=== PATIENT | female | born 1950 | race Caucasian/White ===

== ENCOUNTER 2022-05-16 10:33 | Emergency (ER) | payer MEDICARE ==
[~2022-05-16] VITALS: Ht 157.5 cm; Wt 75.0 kg
[2022-05-16] MEDS ORDERED: APIX2.5T PO (10:45)
[2022-05-16 11:28] VITALS: BP 148/70
[2022-05-16 11:39] LABS: BASOPHILS % (AUTO) 0.9 % (0.0-2.0); HEMATOCRIT 38.6 % (36-46); HEMOGLOBIN 12.9 g/dL (12.0-16.0); LYMPHOCYTES # (AUTO) 2.3 K/uL (1.0-4.8); LYMPHOCYTES % (AUTO) 27.6 % (22.0-44.0); MEAN CORPUSCULAR HEMOGLOBIN 28.4 pg (26.0-34.0); MEAN CORPUSCULAR HGB CONC 33.3 G/dL (31.0-37.0); MEAN CORPUSCULAR VOLUME 85 fL (80-100); MONOCYTES # (AUTO) 0.5 K/uL (0.1-1.0); MONOCYTES % (AUTO) 6.4 % (2.0-9.0); NEUTROPHILS # (AUTO) 5.3 K/uL (1.8-7.7); NEUTROPHILS % (AUTO) 63.1 % (40.0-70.0); PLATELET COUNT (AUTO) 355 K/uL (150-450); RED BLOOD CELL COUNT(AUTO) 4.53 MIL/uL (4.00-5.20); RED CELL DISTRIBUTION WIDTH 14.2 % (11.5-14.5)
[2022-05-16 11:50] LABS: ANION GAP 7 mmol/L (8-16); CALCIUM, TOTAL 9.6 mg/dL (8.8-10.5); CARBON DIOXIDE 30 mmol/L (22-29); CHLORIDE 100 mmol/L (98-107); CREATININE 0.59 mg/dL (0.60-1.30); GLUCOSE,RANDOM 96 mg/dL (70-110); POTASSIUM 3.4 mmol/L (3.5-5.1); SODIUM SERUM 137 mmol/L (136-145); UREA NITROGEN, BLOOD 11 mg/dL (7-18)
[2022-05-16 11:51] LABS: GLOMERULAR FILTR. RATE CALC > 60 mL/min (>60)
[2022-05-16 11:56] LABS: ALANINE AMINOTRANSFERASE 20 U/L (12-78); ALBUMIN 3.4 g/dL (3.4-5.0); ALKALINE PHOSPHATASE 103 U/L (46-116); ASPARTATE AMINOTRANSFERASE 14 U/L (15-37); BILIRUBIN,TOTAL 0.4 mg/dL (0.1-1.0); TOTAL PROTEIN, SERUM 8.2 g/dL (6.4-8.2)
[2022-05-16] MEDS ORDERED: BACI28OI29 TP (11:58)
[2022-05-16] MEDS ORDERED: TRAM-559 PO (11:58)
[2022-05-16] MEDS ORDERED: ACETAMINOPHEN 500 MG TABLET PO ONE (12:00)
[2022-05-16] MEDS ORDERED: HYDROGEN PEROXIDE 118 ML SOLUTION TP ONE (12:00)
[2022-05-16] MEDS ORDERED: BACITRACIN 0.9 GM PACKET OINTMENT TP ONE (12:00)
[2022-05-16] MEDS ORDERED: SERT-439 PO (12:04)
[2022-05-16] MEDS ORDERED: ATOR40TA71 PO (12:04)
[2022-05-16] MEDS ORDERED: LISI40TA9 PO (12:04)
[2022-05-16] MEDS ORDERED: APIX5TAB PO (12:04)
== END 2022-05-16 12:14 | disposition home or self-care (01) ==
LOC: EMS 10:39
DX: L97.929 Non-pressure chronic ulcer of unspecified part of left lower leg with unspecified severity (principal); L97.919 Non-pressure chronic ulcer of unspecified part of right lower leg with unspecified severity; I87.8 Other specified disorders of veins; F32.A Depression, unspecified; E78.00 Pure hypercholesterolemia, unspecified; I10 Essential (primary) hypertension; R73.03 Prediabetes; Z90.710 Acquired absence of both cervix and uterus
CPT/HCPCS: 80053; 85025; 99283